=== PATIENT | female | born 1945 | race Caucasian/White ===

== ENCOUNTER 2020-02-18 12:24 | Outpatient (CLI) | payer MEDICARE, BC ==
[~2020-02-18 12:24] MED LIST: CYCL-259 PO; No meds per pt.; [UNRECOGNIZED DRUG - REMARK]
== END 2020-02-18 23:59 | disposition home or self-care (01) ==
LOC: RAD 12:24
PROVIDERS: ATTEND Physician Assistant
DX: M47.816 Spondylosis without myelopathy or radiculopathy, lumbar region (principal); M41.86 Other forms of scoliosis, lumbar region; M43.26 Fusion of spine, lumbar region; M51.34 Other intervertebral disc degeneration, thoracic region; M48.07 Spinal stenosis, lumbosacral region
CPT/HCPCS: 72100; 72146; 72148